=== PATIENT | female | born 2000 | race Caucasian/White ===

== ENCOUNTER 2019-01-10 18:32 | Emergency (ER) | payer OTHER ==
[~2019-01-10] VITALS: Ht 167.6 cm; Wt 99.8 kg
[2019-01-10] MEDS ORDERED: NAPROSYN500 MG PO (19:56)
[2019-01-10] MEDS ORDERED: ANTIVERT25 MG PO (19:56)
[2019-01-10 20:08] VITALS: BP 125/72
== END 2019-01-10 20:28 | disposition home or self-care (01) ==
LOC: ER 18:32
DX: H81.13 Benign paroxysmal vertigo, bilateral (principal); M26.603 Bilateral temporomandibular joint disorder, unspecified